=== PATIENT | male | born 1950 | race Caucasian/White ===

== ENCOUNTER → 2017-01-24 | Day surgery (SDC) | payer MEDICARE, OTHER ==
[~2017-01-24] MED LIST: ASPIRIN81 M2 PO; CENTRUM PO; FISH OIL 1,2001 EAC1 PO; FLAX SEED OIL1000 M1 PO
--- NOTE | ~2017-01-24 | HP ---
Unit #: [id number] #: [id number] Patient: EILEEN DARDEN [id number] [address] [address] [id number] O MR#: [id number] NAME: EILEEN DARDEN ROOM: Age: Sex: M Admission Date: 01/24/2017 : 1950 Attending Physician: Davin Hernández M.D. Primary Care Physician: No Primary Care Physician HISTORY AND PHYSICAL Primary Care Physician - Malena Amanda. Urologist - Dr. Ty Storm. HISTORY AND EXAM Mr. Darden is a 66-year-old gentleman who is undergoing treatment for prostate cancer and recently underwent an MRI. On MRI, they noted the inferior rectum appeared thickened and they could not completely rule out rectal carcinoma. Colonoscopy was recommended. The patient, otherwise, is asymptomatic as far as colorectal disease. He had his last colonoscopy in 2014 and reports that he did have a polyp. His mother did have colon cancer. PAST MEDICAL HISTORY 1. Prostate cancer. 2. Osteoarthritis. 3. Inguinal hernia repair x3. 4. Appendectomy. 5. Detached retina of the left eye. 6. Cataract surgery. 7. Umbilical hernia repair. 8. Lymph node biopsy. 9. Colonoscopy. ALLERGIES No allergies to medication. MEDICATIONS Current medications include: 1. Aspirin. 2. Flaxseed. 3. Fish oil. 4. Osteo Bi-Flex. 5. Multivitamins. Immunizations are unknown. FAMILY HISTORY COPD, aortic aneurysm, colon cancer. SOCIAL HISTORY , no children. Denies use of alcohol or tobacco. He is retired. REVIEW OF SYSTEMS Unit #: [id number] #: [id number] Patient: EILEEN DARDEN Otherwise unremarkable. PHYSICAL EXAMINATION GENERAL: He is 6 foot, 198 pounds. He is awake, alert and oriented. VITAL SIGNS: Blood pressure 124/72, heart rate 56, respirations 16, temperature 97.8. HEENT: Unremarkable. CARDIAC EXAM: Regular rhythm. LUNGS: Clear. ABDOMEN: Soft. EXTREMITIES: No edema. NEUROLOGICAL: Grossly intact. ASSESSMENT AND PLAN 66-year-old gentleman had a recent MRI which showed thickening of the inferior rectum and malignancy could not be completely ruled out. He has had a personal history of a polyp of the colon and has a family history of colon cancer in his mother. We plan on doing a repeat colonoscopy. I discussed the procedure with the patient including risks, benefits, complications. He understands and agrees to proceed. Dictated by Samson Ro TD: 01/24/2017 08:20 JOB #: [id number] HISTORY AND PHYSICAL X Davin Hernández MD X HISTORY AND PHYSICAL
--- NOTE | ~2017-01-24 | OR ---
Unit #: [id number] #: [id number] Patient: EILEEN DARDEN [id number] [facility] [address] [facility]. [place], [place] [address] [id number] O MR#: [id number] NAME: EILEEN DARDEN ROOM: Date of Procedure: 01/24/2017 Admission Date: 01/24/2017 Surgeon: Davin Hernández M.D. : 1950 Attending Physician: Davin Hernández M.D. OPERATIVE REPORT PRIMARY CARE PHYSICIAN Malena Amanda A.P.R.N. UROLOGIST Dr. Storm. PREOPERATIVE DIAGNOSIS Abnormal MRI. POSTOPERATIVE DIAGNOSIS Normal colonoscopy. PROCEDURE PERFORMED Colonoscopy to cecum with 4 quadrant biopsies of the rectum. ANESTHESIA Monitored anesthesia. INDICATIONS FOR PROCEDURE A 66-year-old gentleman, undergoing treatment for prostate cancer. Recently, he had an MRI of the pelvis, which showed some thickening of the inferior rectal wall. Malignancy could not completely be ruled out. He does have a family history of colon cancer and a personal history of polyps in the colon. DESCRIPTION OF PROCEDURE The patient was admitted to [facility], positively identified, and transported to the endoscopy unit, where after appropriate monitoring and positioning, he was sedated by the nurse english adjunct faculty. On rectal examination, there was no local anorectal pathology. Digital examination was normal. Colonoscope was passed through the anal verge and as we insufflated the rectum, 360 degree view of the rectum appeared normal. I went up to the superior rectum and retroflexed the scope, looking back at the anal verge and the mucosa appeared normal throughout. I then placed the scope back in the antegrade position and passed scope throughout the colon to the cecum. On careful antegrade and retrograde visualization, no abnormalities were noted throughout. As we reached the rectal vault again four quadrant biopsies were taken to rule out any atypia or other findings. The patient tolerated the procedure well and was transported to recovery in stable condition. Findings will be discussed with his . Copies of his pathology report will be reviewed and call to the family as well as sent to his referring physicians. Unit #: [id number] #: [id number] Patient: EILEEN DARDEN Dictated by... Davin Hernández M.D. RS/jl TD: 01/24/2017 08:12 JOB #: [id number] OPERATIVE REPORT X Davin Hernández MD PROCEDURE OPERATIVE NOTE
== END | disposition home or self-care (01) ==
LOC: COPS 05:33
DX: K62.89 Other specified diseases of anus and rectum (principal); C61 Malignant neoplasm of prostate; Z86.010 Personal history of colon polyps; Z80.0 Family history of malignant neoplasm of digestive organs; M19.90 Unspecified osteoarthritis, unspecified site; Z90.49 Acquired absence of other specified parts of digestive tract; Z98.49 Cataract extraction status, unspecified eye; Z98.890 Other specified postprocedural states; Z79.82 Long term (current) use of aspirin; Z79.899 Other long term (current) drug therapy; Z85.038 Personal history of other malignant neoplasm of large intestine
CPT/HCPCS: 88305; J2250